=== PATIENT | female | born 1940 | race Caucasian/White ===

== ENCOUNTER → 2017-03-03 | Outpatient (CLI) | payer MEDICARE, BC ==
[~2017-03-03] MED LIST: ARIMIDEX1 MG PO; ASPIRIN 81M81 MG/TA2 PO; CARDI-OMEGA1000 MG PO; CENTRUM SILVER1 CTB PO; CEPHALEXIN500 M1 PO; CITRACAL + D CA1 TAB PO; LOTREL 5/10MG C1 CAP PO; NORCO 325 MG-51 TAB PO; NORCO 325 MG-7.1 TAB PO; PRAVACHOL 40MG40 MG PO; VITAMIN C500 MG PO
== END ==
LOC: MC.RAD 09:40
DX: Z12.31 Encounter for screening mammogram for malignant neoplasm of breast (principal)

== ENCOUNTER → 2018-03-04 | Outpatient (CLI) | payer MEDICARE, BC | LOC: MC.RAD 09:46 | DX: Z12.31 Encounter for screening mammogram for malignant neoplasm of breast (principal); Z98.890 Other specified postprocedural states ==

== ENCOUNTER → 2019-03-06 | Outpatient (CLI) | payer MEDICARE, BC | LOC: MC.RAD 09:45 | DX: Z12.31 Encounter for screening mammogram for malignant neoplasm of breast (principal); Z98.890 Other specified postprocedural states ==

== ENCOUNTER → 2020-03-26 | Outpatient (CLI) | payer MEDICARE, BC | LOC: MC.RAD 09:58 | DX: Z12.31 Encounter for screening mammogram for malignant neoplasm of breast (principal); Z85.3 Personal history of malignant neoplasm of breast; Z98.890 Other specified postprocedural states; Z98.82 Breast implant status ==

== ENCOUNTER → 2021-04-25 | Outpatient (CLI) | payer MEDICARE, BC | LOC: MC.RAD 04-11 10:15 | DX: Z12.31 Encounter for screening mammogram for malignant neoplasm of breast (principal); Z90.11 Acquired absence of right breast and nipple; Z98.82 Breast implant status; Z98.890 Other specified postprocedural states ==